=== PATIENT | male | born 1975 | race Caucasian/White ===

== ENCOUNTER 2022-01-20 10:08 | Day surgery (SDC) | payer OTHER, SELFPAY ==
[2022-01-17 13:14] VITALS: BMI 24.4
[2022-01-20] MEDS: sodium chloride 0.9% 1,000 ML 30 ML IV (10:38)
--- NOTE | 2022-01-20 10:44 | ANES.PREANE2 ---
Pre-Anesthetic Assessment Height/Weight: Height 1.83 m Weight 81.647 kg Preop Diagnosis: screening Operation Date: 01/20/22 11:30 Proposed Procedures p Colonoscopy(Not Applicable) - John Paul Solis MD Familial anesthetic complications: none Was Beta Elsi taken within 24 hours: N/A Was Clonidine taken within 24 hours: N/A Last intake: Intake Last Solid Date 01/18/22 Social Alcohol, Tobacco, No alcohol and No tobacco Exam alert, oriented x 3, clear to auscultation bilaterally and regular rate & rhythm Airway Mallampati: Class II Dentition: full Pulmonary None reported CV/HEM None reported None reported Hepatic None reported GI None reported Metabolic None reported Musc/skel None reported Neuropsych None reported Anesthetic Plan ASA status: 2 Anesthesia: MAC Medications/Allergies Home Medications Medication Instructions Recorded Confirmed Last Taken Type cetirizine 10 mg tablet (Zyrtec) 10 mg PO DAILY PRN 01/17/22 01/20/22 1 Week Ago History ~01/13/22 multivitamin 1 cap PO DAILY 01/17/22 01/20/22 01/19/22 History rosuvastatin 10 mg tablet 10 mg PO DAILY 01/17/22 01/20/22 01/18/22 History Allergies Allergy/AdvReac Type Severity Reaction Status Date / Time No Known Allergies Allergy Verified 01/17/22 13:06 Current Medications Generic Name Dose Route Start Last Admin Trade Name Freq PRN Reason Stop Dose Admin Sodium Chloride 1,000 mls @ 30 mls/hr 01/20/22 10:45 01/20/22 10:38 Sodium Chloride 0.9% IV 01/21/22 10:44 30 mls/hr .Q24H XANDER Administration Data Anesthesia Cardiac Studies: No Data to Display
--- NOTE | 2022-01-20 11:26 | W.PM.OPSUD ---
Surgery/Procedure H&P Update DATE OF PROCEDURE: January 20, 2022 DATE H&P PERFORMED: 12/31/21 H&P UPDATE INFORMATION: No changes to prior documentation PREOP DIAGNOSIS: desiring screening colonoscopy PLANNED PROCEDURE: Operation Date: 01/20/22 11:30 Proposed Procedures p Colonoscopy(Not Applicable) - John Paul Solis MD
[2022-01-20 11:56] VITALS: BP 103/67; PULSE 91; RESP 16; TEMP 36.5; O2SAT 99
[2022-01-20 12:19] VITALS: BP 127/78; PULSE 61; RESP 18; O2SAT 95
--- NOTE | 2022-01-20 14:48 | ANE.PACU2 ---
Inpatient post-anesthesia follow up: Airway intact: Yes Vital signs: Temperature 97.7 F Pulse Rate 61 Respiratory Rate 18 Blood Pressure 127/78 Pulse Oximetry 95 Oxygen Delivery Me thod Room Air Oxygen Flow Rate 2 Fraction of Inspir ed Oxygen Hydration adequate: Yes Nausea and vomiting: No Pain level: 1 Mental status: Baseline
== END 2022-01-20 12:22 | disposition home or self-care (01) ==
PROVIDERS: PCP Family Medicine; Visit Provider Surgery
PROC: 0DJD8ZZ Inspection of Lower Intestinal Tract, Via Natural or Artificial Opening Endoscopic (ICD-10-PCS; CPT 45378; principal; 2022-01-20 11:30)
DX: Z12.11 Encounter for screening for malignant neoplasm of colon (principal); D12.4 Benign neoplasm of descending colon; K64.8 Other hemorrhoids
CPT/HCPCS: 45385; 88305; J2704; J7030

== ENCOUNTER → 2022-03-25 11:28 | Outpatient (BNVA) | payer OTHER, SELFPAY | PROVIDERS: PCP Family Medicine; Visit Provider Family Medicine | DX: Z00.00 Encounter for general adult medical examination without abnormal findings (principal); E78.00 Pure hypercholesterolemia, unspecified; R03.0 Elevated blood-pressure reading, without diagnosis of hypertension | CPT/HCPCS: 80053; 80061; 85025 ==

== ENCOUNTER → 2023-03-24 09:01 | Outpatient (BNVA) | payer OTHER, SELFPAY | PROVIDERS: PCP Family Medicine; Visit Provider Family Medicine | DX: Z00.00 Encounter for general adult medical examination without abnormal findings (principal); E03.9 Hypothyroidism, unspecified; Z13.6 Encounter for screening for cardiovascular disorders | CPT/HCPCS: 80053; 80061; 82607; 84443; 85025 ==

== ENCOUNTER → 2023-05-01 10:34 | Outpatient (BNVA) | payer OTHER, SELFPAY | PROVIDERS: PCP Family Medicine; Visit Provider Podiatrist Foot & Ankle Surgery | DX: S86.112A Strain of other muscle(s) and tendon(s) of posterior muscle group at lower leg level, left leg, initial encounter; X58.XXXA Exposure to other specified factors, initial encounter; M76.62 Achilles tendinitis, left leg; Y93.02 Activity, running | CPT/HCPCS: 73610 ==

== ENCOUNTER 2023-05-05 08:38 | Outpatient (CLI) | payer OTHER, SELFPAY ==
--- NOTE | 2023-05-05 08:45 | MR_ITS ---
WS: [id number] MRI OF THE LEFT LOWER LEG WITHOUT GADOLINIUM ENHANCEMENT. INDICATION: [place] a pop while playing pickle ball last week TECHNIQUE: Axial PD, axial T2 fat-sat, coronal T1, coronal STIR sagittal STIR and sagittal T1 imaging FINDINGS: Normal bone marrow signal in the left tibia and fibula. No acute fractures. Partially visua lized femoral condyles demonstrate normal bone marrow signal. Mild diffuse edema with some small amount of fluid involving the medial head of the gastrocnemius wit h edema extending posteriorly. Findings compatible with acute gastrocnemius injury. Normal popliteus. Small amount of edema extends along the plantaris tendon. Small amount of edema extends into the adj acent soleus dorsally. Additional intramuscular edema in the distal soleus dorsally IMPRESSION: 1. Normal bone marrow signal. No acute fractures in the left tibia or fibula. 2. Mild soft tissue and intramuscular edema involving the medial head of the left gastroc with fluid extending along the plantaris tendon compatible with acute injury. 3. Small amount of adjacent intramuscular edema in the medial aspect of the soleus and distal soleus dorsally. 4. No other acute findings.
== END 2023-05-05 08:39 | disposition home or self-care (01) ==
PROVIDERS: PCP Family Medicine; Visit Provider Podiatrist Foot & Ankle Surgery
DX: S86.112A Strain of other muscle(s) and tendon(s) of posterior muscle group at lower leg level, left leg, initial encounter (principal); X58.XXXA Exposure to other specified factors, initial encounter; M76.60 Achilles tendinitis, unspecified leg
CPT/HCPCS: 73718

== ENCOUNTER 2023-07-21 08:27 | Outpatient (RCR) | payer OTHER, SELFPAY | END 2023-07-28 23:59 | disposition home or self-care (01) | LOC: SPT 08:27 | PROVIDERS: PCP Family Medicine; Visit Provider Podiatrist Foot & Ankle Surgery | DX: S86.812D Strain of other muscle(s) and tendon(s) at lower leg level, left leg, subsequent encounter (principal); X58.XXXD Exposure to other specified factors, subsequent encounter | CPT/HCPCS: 97110; 97161 ==

== ENCOUNTER 2023-07-29 06:00 | Outpatient (RCR) | payer OTHER, SELFPAY | END 2023-08-27 23:59 | disposition home or self-care (01) | LOC: SPT 06:00 | PROVIDERS: PCP Family Medicine; Visit Provider Podiatrist Foot & Ankle Surgery | DX: S86.112D Strain of other muscle(s) and tendon(s) of posterior muscle group at lower leg level, left leg, subsequent encounter (principal); X58.XXXD Exposure to other specified factors, subsequent encounter | CPT/HCPCS: 20560; 97110 ==

== ENCOUNTER 2023-09-18 11:40 | Outpatient (RCR) | payer OTHER, SELFPAY | END 2023-09-27 23:59 | disposition home or self-care (01) | LOC: SPT 11:40 | PROVIDERS: PCP Family Medicine; Visit Provider Podiatrist Foot & Ankle Surgery | DX: S86.112D Strain of other muscle(s) and tendon(s) of posterior muscle group at lower leg level, left leg, subsequent encounter (principal); X58.XXXD Exposure to other specified factors, subsequent encounter | CPT/HCPCS: 20560; 97110 ==

== ENCOUNTER 2023-09-28 06:00 | Outpatient (RCR) | payer OTHER, SELFPAY | END 2023-10-28 23:59 | disposition home or self-care (01) | LOC: SPT 06:00 | PROVIDERS: PCP Family Medicine; Visit Provider Podiatrist Foot & Ankle Surgery | DX: S86.112D Strain of other muscle(s) and tendon(s) of posterior muscle group at lower leg level, left leg, subsequent encounter (principal); X58.XXXD Exposure to other specified factors, subsequent encounter | CPT/HCPCS: 97110 ==

== ENCOUNTER → 2024-10-18 09:13 | Outpatient (BNVA) | payer OTHER, SELFPAY | PROVIDERS: PCP Family Medicine; Visit Provider Family Medicine | DX: Z00.00 Encounter for general adult medical examination without abnormal findings (principal) | CPT/HCPCS: 80053; 80061; 85025 ==